=== PATIENT | male | born 1975 | race Caucasian/White ===

== ENCOUNTER 2016-09-17 13:10 | Emergency (ER) | payer BC ==
[~2016-09-17] VITALS: Ht 180.3 cm; Wt 86.4 kg
[~2016-09-17 13:10] MED LIST: PRILOSEC 20MG20 MG PO; TUMS500 MG PO
[2016-09-17 13:13] VITALS: TEMP 97.6
[2016-09-17] MEDS ORDERED: PRINIVIL20 MG PO (13:16)
[2016-09-17 13:46] LABS: PH 8 (5-8); SQUAMOUS EPITHELIAL 0-2 /hpf; URINE APPEARANCE Cloudy; URINE BACTERIA Rare /hpf; URINE BILIRUBIN Negative (NEGATIVE); URINE BLOOD 1+ (NEGATIVE); URINE COLOR Yellow; URINE GLUCOSE Negative (NEGATIVE); URINE KETONE Negative (NEGATIVE); URINE RBC 20-50 /hpf; URINE UROBILINOGEN Negative (NEGATIVE)
[2016-09-17 13:54] LABS: BASO # 0.1 (0.0-0.2); BASO % 0.4 % (0.0-2.0); EOS % 0.2 % (0-4.0); GRAN # 10.4 (1.4-6.5); GRAN % 77.6 % (42.2-75.2); HEMATOCRIT 45.9 % (42.0-52.0); HEMOGLOBIN 16.1 g/dl (13.5-18.0); LYMPH # 1.8 (1.2-3.4); LYMPH % 13.5 % (20.0-51.0); MEAN CELL VOLUME 98 fl (80.0-100.0); MEAN CORPUSCULAR HEMOGLOBIN 34 pg (27.0-31.0); MEAN CORPUSCULAR HGB CONC 35 g/dl (33.0-37.0); MEAN PLATELET VOLUME 9.6 fl (7.4-10.4); MONO % 7.3 % (1.7-9.3); PLATELET COUNT 266 K/mm3 (130-400); RED BLOOD COUNT 4.69 M/mm3 (4.20-5.60); WHITE BLOOD COUNT 13.4 K/mm3 (4.8-10.8)
[2016-09-17 14:02] LABS: ADJUSTED CALCIUM 9.5 mg/dL (8.4-10.2); ALBUMIN 4.9 gm/dL (3.5-5.0); BILIRUBIN,TOTAL 1.1 mg/dL (0.0-1.0); CALCIUM 10.2 mg/dL (8.4-10.2); CREATININE, serum 1.1 mg/dL (0.66-1.25); POTASSIUM 4.3 mmol/L (3.4-5.0); TOTAL PROTEIN 8.1 gm/dL (6.4-8.2)
[2016-09-17] MEDS ORDERED: PERCOCET 325 MG1 TA2 PO (15:29)
[2016-09-17] MEDS ORDERED: NORCO 325 MG-7.1 TAB PO (15:41)
[2016-09-17 15:53] VITALS: BP 136/82; PULSE 82
== END 2016-09-17 15:55 | disposition home or self-care (01) ==
LOC: COL.ER 13:10
PROVIDERS: Nurse Practitioner
DX: N20.2 Calculus of kidney with calculus of ureter (principal); R91.1 Solitary pulmonary nodule; R74.8 Abnormal levels of other serum enzymes; F10.21 Alcohol dependence, in remission; I10 Essential (primary) hypertension; F17.210 Nicotine dependence, cigarettes, uncomplicated; F12.90 Cannabis use, unspecified, uncomplicated
CPT/HCPCS: J1170; J1885; J2405; J7030

== ENCOUNTER → 2019-02-26 | Outpatient (CLI) | payer BC ==
[~2019-02-26] MED LIST changes: +NORCO 325 MG-7.1 TAB PO; +PERCOCET 325 MG1 TA2 PO; +PRINIVIL20 MG PO
== END ==
LOC: COL.RAD 09:16
DX: G45.4 Transient global amnesia (principal)
CPT/HCPCS: A9585

== ENCOUNTER 2022-01-20 19:33 | Inpatient (IN) | payer BC ==
[2022-01-20] VITALS (43 sets, daily range): O2SAT 92–100
[~2022-01-20] VITALS: Ht 180.3 cm; Wt 88.1 kg
[2022-01-20 20:16] LABS: BASO # 0.1 K/mm3 (0.0-0.2); BASO % 0.4 % (0.0-2.0); EOS # 0.2 K/mm3 (0.0-0.7); EOS % 1.8 % (0.0-4.0); GRAN % 81.7 % (42.2-75.2); LYMPH # 1.3 K/mm3 (1.2-3.4); LYMPH % 9.8 % (20.0-51.0); MEAN CELL VOLUME 139 fl (80.0-100.0); MEAN CORPUSCULAR HGB CONC 35 g/dl (33.0-37.0); MEAN PLATELET VOLUME 9.3 fl (7.4-10.4); MONO # 0.8 K/mm3 (0.1-0.6); MONO % 5.8 % (1.7-9.3); PLATELET COUNT 311 K/mm3 (130-400); RED BLOOD COUNT 2.01 M/mm3 (4.20-5.60); REDCELL DISTRIBUTION WIDTH-CV 13.3 % (11.5-14.5)
[2022-01-20 20:17] LABS: HEMOGLOBIN 9.9 g/dl (13.5-18.0); MEAN CORPUSCULAR HEMOGLOBIN 49 pg (27-31)
[2022-01-20 20:40] LABS: ALANINE AMINOTRANSFERASE 29 U/L (0-55); ALBUMIN 3.2 gm/dL (3.5-5.0); ALKALINE PHOSPHATASE 145 U/L (40-150); ANION GAP 14 mmol/L (7-16); AST,SGOT 43 U/L (5-34); BILIRUBIN,TOTAL 1.5 mg/dL (0.2-1.2); BLOOD UREA NITROGEN 8 mg/dL (9-21); CALCIUM 8.8 mg/dL (8.4-10.2); CARBON DIOXIDE 19 mmol/L (22-29); CHLORIDE 107 mmol/L (98-107); CREATININE, serum 0.63 mg/dL (0.72-1.25); GLUCOSE 105 mg/dL (70-99); POTASSIUM 3.5 mmol/L (3.5-4.5); SODIUM 140 mmol/L (136-145); TOTAL PROTEIN 6.4 gm/dL (6.2-8.1)
[2022-01-20 20:47] LABS: TROPONIN-I < 0.010 ng/mL (0.00-0.033)
[2022-01-20 21:23] LABS: COLLECTION METHOD CLEAN CATCH
[2022-01-20 21:31] LABS: MUCOUS Present (NOT PRESENT); SQUAMOUS EPITHELIAL None Seen /hpf (0-10); URINE BACTERIA None Seen /hpf (NONE SEEN); URINE RBC 0-2 /hpf (0-2)
[2022-01-20 21:32] LABS: URINE APPEARANCE Clear (CLEAR/HAZY); URINE BLOOD Negative (NEGATIVE); URINE COLOR Yellow (YELLOW); URINE GLUCOSE Negative (NEGATIVE); URINE KETONE 2+ (NEGATIVE); URINE NITRATE Negative (NEGATIVE); URINE PROTEIN(semi-quant) Negative (NEGATIVE)
[2022-01-20 21:53] LABS: INR 1.2 (0.8-3.0); PROTHROMBIN TIME 13.5 SECONDS (9.7-12.8)
[2022-01-20 21:56] LABS: PARTIAL THROMBOPLASTIN TIME 30.2 SECONDS (26.0-37.0)
[2022-01-21] VITALS (1004 sets, daily range): BP systolic 125–148; BP diastolic 75–99; PULSE 80–105; TEMP 97.8–99.1; O2SAT 90–100
[2022-01-21 03:39] LABS: TRICYCLIC ANTIDEPRESS URINE NEGATIVE
[2022-01-21 06:12] LABS: BASO # 0.1 K/mm3 (0.0-0.2); BASO % 0.4 % (0.0-2.0); EOS # 0.4 K/mm3 (0.0-0.7); EOS % 3.4 % (0.0-4.0); GRAN # 8.7 K/mm3 (1.4-6.5); GRAN % 75.1 % (42.2-75.2); LYMPH # 1.6 K/mm3 (1.2-3.4); LYMPH % 13.6 % (20.0-51.0); MEAN CELL VOLUME 138 fl (80.0-100.0); MEAN CORPUSCULAR HGB CONC 36 g/dl (33.0-37.0); MEAN PLATELET VOLUME 9.5 fl (7.4-10.4); MONO # 0.8 K/mm3 (0.1-0.6); MONO % 6.7 % (1.7-9.3); PLATELET COUNT 240 K/mm3 (130-400); RED BLOOD COUNT 1.76 M/mm3 (4.20-5.60); REDCELL DISTRIBUTION WIDTH-CV 13.3 % (11.5-14.5)
[2022-01-21 06:15] LABS: HEMATOCRIT 24.2 % (42.0-52.0); HEMOGLOBIN 8.7 g/dl (13.5-18.0); MEAN CORPUSCULAR HEMOGLOBIN 49 pg (27-31)
[2022-01-21 06:18] LABS: CALCIUM 8.1 mg/dL (8.4-10.2); CREATININE, serum 0.59 mg/dL (0.72-1.25); POTASSIUM 4.8 mmol/L (3.5-4.5)
--- NOTE | 2022-01-21 07:00 | NUR ---
REPORT RECEIVED FROM ANNABEL TURNER; PATIENT CURRENTLY RESTING COMFORTABLY IN BED WITH VITAL SIGNS WITHIN NORMAL LIMITS. PATIENT IS ON A HEPARIN DRIP RUNNING THROUGH HIS PERIPHERAL IV.
--- NOTE | 2022-01-21 10:39 | NUR ---
Treasure: No alevism preference Situation: director of application development stopped by room on rounds Background: Pt was resting and content with family by his side Assessment: Pt has no needs right now and appreciated the visit Recommendation: director of application development will follow up as needed
--- NOTE | 2022-01-21 10:51 | NUR ---
farmworker rice met with patient to discuss discharge planning. Patient states he resides with his spouse and young children and plans to return home upon discharge with no concerns. Patient's primary care provider is Dr Kiser and patient denies no concerns with obtaining his prescriptions, stating they are covered by his health insurance. Patient states he does not have any advance directives and declines information on them.
--- NOTE | 2022-01-21 20:14 | NUR ---
1944 - GAVE REPORT TO ANNABEL GIBBS. PT D/C FROM ICU MONITOR AND PLACED ON TELE TRANSFERRED TO ROOM 324 BY THIS RN. PT VERBALIZED NO COMPLAINTS. OCEAN FREIGHT MANAGER AT BEDSIDE DURING TRANSFER
--- NOTE | 2022-01-21 22:24 | NUR ---
PATIENT UP TO ROOM 324. ALERT AND ORIENTED. MED RX COMPLETED. VSS. SCORE 2 ON CIWA. HEP XA .32 AND INCREASED FROM 1949 TO 2049 AT THIS TIME. RECHECK AT 0200. DENIES PAIN. HS MEDS PER EMAR.
[2022-01-22] VITALS (7 sets, daily range): BP systolic 127–157; BP diastolic 69–89; PULSE 82–99; TEMP 98.2–98.8
[2022-01-22 08:25] LABS: BASO % 0.4 % (0.0-2.0); EOS # 0.4 K/mm3 (0.0-0.7); EOS % 3.5 % (0.0-4.0); GRAN # 7.3 K/mm3 (1.4-6.5); LYMPH # 1.7 K/mm3 (1.2-3.4); LYMPH % 16.4 % (20.0-51.0); MEAN CELL VOLUME 136 fl (80.0-100.0); MEAN CORPUSCULAR HGB CONC 36 g/dl (33.0-37.0); MEAN PLATELET VOLUME 9.2 fl (7.4-10.4); MONO # 0.7 K/mm3 (0.1-0.6); MONO % 6.7 % (1.7-9.3); PLATELET COUNT 256 K/mm3 (130-400); REDCELL DISTRIBUTION WIDTH-CV 13.2 % (11.5-14.5)
[2022-01-22 08:27] LABS: HEMATOCRIT 25.9 % (42.0-52.0); HEMOGLOBIN 9.4 g/dl (13.5-18.0); MEAN CORPUSCULAR HEMOGLOBIN 49 pg (27-31)
[2022-01-22 08:48] LABS: CALCIUM 8.2 mg/dL (8.4-10.2); CREATININE, serum 0.62 mg/dL (0.72-1.25); POTASSIUM 4.2 mmol/L (3.5-4.5)
--- NOTE | 2022-01-22 08:57 | NUR ---
Hep Xa wnl, no change needed at this time. Recheck in am.
--- NOTE | 2022-01-22 09:20 | NUR ---
Pt. sitting up in bed. Pt. is A&OX3, assessment complete. INT to lt. ac patent, IV to rt. ac patent, Heparin gtt infusing per orders. Pt. denies pain or other needs, call light within reach.
--- NOTE | 2022-01-22 09:52 | NUR ---
Initial visit; Patient and his thanked Ledge Man for looking in on him and offering Spiritual Care.
--- NOTE | 2022-01-22 11:19 | NUR ---
Principal Automation Engineer attended clinical rounds with the team. Patient may discharge tomorrow and may need home oxygen.
--- NOTE | 2022-01-22 22:34 | NUR ---
SHIFT REPORT FROM DAY SHIFT RN. PATIENT IN BED ON ROOM ENTRY. FAMILY AT BEDSIDE. HS MEDS PER EMAR. NICOTINE PATCH TO R SHOULDER REMOVED. SCORING 1 ON CIWA PROTOCOL. IV TO L AC REMOVED, BANDAID AND COBAN APPLIED. DENIES ADDITIONAL NEEDS. CALL LIGHT IN REACH.
[2022-01-23 04:31] VITALS: BP 136/86; PULSE 92; TEMP 98.9
[2022-01-23 07:01] LABS: MEAN CELL VOLUME 137 fl (80.0-100.0); MEAN CORPUSCULAR HGB CONC 37 g/dl (33.0-37.0); MEAN PLATELET VOLUME 9.9 fl (7.4-10.4); PLATELET COUNT 281 K/mm3 (130-400); RED BLOOD COUNT 1.74 M/mm3 (4.20-5.60); REDCELL DISTRIBUTION WIDTH-CV 13.2 % (11.5-14.5)
[2022-01-23 07:06] LABS: HEMATOCRIT 23.8 % (42.0-52.0); HEMOGLOBIN 8.7 g/dl (13.5-18.0); MEAN CORPUSCULAR HEMOGLOBIN 50 pg (27-31)
[2022-01-23 07:23] VITALS: BP 136/77; PULSE 84; TEMP 98
[2022-01-23 07:30] LABS: CALCIUM 8.3 mg/dL (8.4-10.2); CREATININE, serum 0.65 mg/dL (0.72-1.25); POTASSIUM 4.3 mmol/L (3.5-4.5)
--- NOTE | 2022-01-23 07:47 | NUR ---
Pt assessment complete. Pt is laying in bed upon entry, he is A/O x4. His breathing is even and unlabored on 2L O2 via NC. Pt denies increased SOB at this time. Reports an increase in coughing, no production. Reports pain to L lower rib cage with deep inspiration. No N/V. Denies needs at this time. Call light within reach.
[2022-01-23 08:25] LABS: BAND 3 % (0-10); BASOPHIL 1 % (0-2); EOSINOPHIL 4 % (0-4); LYMPHOCYTE 15 % (20.0-51.0); METAMYELOCYTE 1 % (0-0); MYELOCYTE 1 % (0-0); NEUTROPHILS 70 % (42.0-75.2); PLATELET ESTIMATE NORMAL (NORMAL)
[2022-01-23] MEDS ORDERED: ELIQUIS 5MG PO ×2 (08:38)
[2022-01-23] MEDS ORDERED: NICODERM C21 MG/PATC TD (09:12)
--- NOTE | 2022-01-23 09:54 | NUR ---
PT TOLERATED EXCERCISE OXIMETRY WELL, SPO2 REACHED 88% BUT PATIENT HAD NO COMPLAINTS OF SOB. STOPPED TO READ PULSE OX AND OXYGEN LEVELS REACHED >90% WITHIN A MINUTE.
--- NOTE | 2022-01-23 10:32 | NUR ---
Discharge paperwork and instructions reviewed with the patient and his . All questions answered at this time. IV to RAC dc'd catheter tip intact. Pt walked out of facility with staff member at this time.
--- NOTE | 2022-01-23 11:27 | NUR ---
Car Stereo Installer attended clinical rounds with the team and plan is for discharge today. Patient did not qualify for home oxygen. SW met with patient and provided drug/alcohol resources as he had verbalized to RN he wanted stop drinking. Patient accepted resources and stated he would work on it.
== END 2022-01-23 10:34 | disposition home or self-care (01) | DRG 175 ==
LOC: COL.ER 19:33 → ICU 21:49 → SURG 01-21 19:50
PROVIDERS: Nurse Practitioner Family; Nurse Practitioner Primary Care; Physician Assistant; Student in an Organized Health Care Education/Training Program; ADMIT Internal Medicine
DX: I26.99 Other pulmonary embolism without acute cor pulmonale (principal); J96.01 Acute respiratory failure with hypoxia; E87.20 Acidosis, unspecified; R65.10 Systemic inflammatory response syndrome (SIRS) of non-infectious origin without acute organ dysfunction; I10 Essential (primary) hypertension; R05.3 Chronic cough; F17.210 Nicotine dependence, cigarettes, uncomplicated; F10.90 Alcohol use, unspecified, uncomplicated; Z20.822 Contact with and (suspected) exposure to COVID-19; D72.829 Elevated white blood cell count, unspecified; E87.6 Hypokalemia; F12.90 Cannabis use, unspecified, uncomplicated; D64.9 Anemia, unspecified; K76.0 Fatty (change of) liver, not elsewhere classified; Z23 Encounter for immunization
CPT/HCPCS: J1644; J3411; J3475; J7030; Q9967